=== PATIENT | male | born 2005 | race Caucasian/White ===

== ENCOUNTER 2025-04-04 00:17 | Emergency (ER) | payer OTHER ==
[2025-04-04] MEDS ORDERED: Tetracaine HCl/PF 0.5% 4 ML Bottle ONE (00:34)
[2025-04-04] MEDS ORDERED: Fluorescein 1 MG Ophth Strip ONE (00:34)
[2025-04-04] MEDS: Tetracaine HCl/PF 0.5% 4 ML Bottle EYELF ONE (00:47)
[2025-04-04] MEDS: Fluorescein 1 MG Ophth Strip EYEBOTH ONE (00:47)
[2025-04-04] MEDS: Erythromycin Base 0.5% Ophth Oint 3.5 GM Tube EYERT ONE (01:25)
== END 2025-04-04 01:26 | disposition home or self-care (01) ==
LOC: DL.ED 00:17
DX: H11.421 Conjunctival edema, right eye (principal); Z86.16 Personal history of COVID-19
CPT/HCPCS: 99283; A9270; J3490